=== PATIENT | female | born 1940 | race African-American/Black ===

== ENCOUNTER 2017-05-02 14:39 | Emergency (ER) | payer BC ==
[~2017-05-02] VITALS: Ht 160 cm; Wt 55.0 kg
[2017-05-02 17:49] VITALS: BP 150/76
== END 2017-05-02 18:04 | disposition home or self-care (01) ==
LOC: ER 14:55
DX: E11.649 Type 2 diabetes mellitus with hypoglycemia without coma (principal)
CPT/HCPCS: 82962; 99283